=== PATIENT | male | born 1975 | race American Indian/Alaskan Native ===

== ENCOUNTER 2020-08-20 16:58 | Emergency (ER) | payer SELFPAY ==
[2020-08-20] MEDS ORDERED: SODIUM CHLORIDE 0.9% 1000 ML 1,000 ML IV ONE (17:35)
--- NOTE | 2020-08-20 17:43 | Emergency Department Report ---
ED General Adult HPI - General Chief complaint: Seizure Stated complaint: AMS Time Seen by Provider: 08/20/20 17:23 Source: patient Mode of arrival: Stretcher Limitations: No Limitations - History of Present Illness Initial comments: Patient presents to the emergency department with a chief complaint of a syncopal episode with seizure-like activity. Per EMS the patient was cutting grass when he passed out which was witnessed by sister. The sister states the patient was also shaking as if he had a seizure while lying on the ground. Patient denies a history of seizures. Upon questioning the patient he denies having a history of passing out in the past but does endorse being a daily drinker. Patient states that he drinks a couple beers a day but did not drink any alcohol today. Patient states that is unusual. Patient denies chest pain, shortness breath, or headache. -: Sudden Severity scale (0 -10): 0 Consistency: now resolved Improves with: none Worsens with: none Associated Symptoms: denies other symptoms Treatments Prior to Arrival: none - Related Data Allergies Allergy/AdvReac Type Severity Reaction Status Date / Time No Known Allergies Allergy Unverified 08/20/20 17:17 ED Review of Systems ROS: Stated complaint: AMS Other details as noted in HPI Comment: All other systems reviewed and negative Constitutional: denies: chills, fever Eyes: denies: eye pain, eye discharge, vision change ENT: denies: ear pain, throat pain Respiratory: denies: cough, shortness of breath, wheezing Cardiovascular: denies: chest pain, palpitations Endocrine: no symptoms reported Gastrointestinal: denies: abdominal pain, nausea, diarrhea Genitourinary: denies: urgency, dysuria Musculoskeletal: denies: back pain, joint swelling, arthralgia Skin: denies: rash, lesions Neurological: denies: headache, weakness, paresthesias Psychiatric: denies: anxiety, depression Hematological/Lymphatic: denies: easy bleeding, easy bruising ED Past Medical Hx - Past Medical History Previous Medical History?: No - Surgical History Past Surgical History?: No - Social History Smoking Status: Current Every Day Smoker Substance Use Type: Alcohol ED Physical Exam - General Limitations: No Limitations General appearance: alert, in no apparent distress - Head Head exam: Present: atraumatic, normocephalic - Eye Eye exam: Present: normal appearance, PERRL, EOMI - ENT ENT exam: Present: mucous membranes moist, other (Patient has dried blood to the left nasal nare) - Neck Neck exam: Present: normal inspection - Respiratory Respiratory exam: Present: normal lung sounds bilaterally. Absent: respiratory distress - Cardiovascular Cardiovascular Exam: Present: normal rhythm, tachycardia. Absent: systolic murmur, diastolic murmur, rubs, gallop - GI/Abdominal GI/Abdominal exam: Present: soft, normal bowel sounds. Absent: distended, tenderness - Rectal Rectal exam: Present: deferred - Extremities Exam Extremities exam: Present: normal inspection - Back Exam Back exam: Present: normal inspection - Neurological Exam Neurological exam: Present: alert, oriented X3, CN II-XII intact. Absent: motor sensory deficit - Psychiatric Psychiatric exam: Present: normal affect, normal mood - Skin Skin exam: Present: warm, dry, intact, normal color. Absent: rash ED Medical Decision Making - Medical Decision Making After discussing the need for a work-up due to the patient's syncopal episode he decided that he wanted to leave AGAINST MEDICAL ADVICE. I discussed in detail with the patient the dangers of this including worsening of his symptoms/illness, and . After much discussion and with me expressing my concern about him leaving the patient still decided to leave AGAINST MEDICAL ADVICE. Critical care attestation.: If time is entered above; I have spent that time in minutes in the direct care of this critically ill patient, excluding procedure time. ED Disposition Clinical Impression: Syncope and collapse Disposition: DC-07 LEFT AGAINST MED ADVICE Is pt being admited?: No Does the pt Need Aspirin: No Condition: Stable Instructions: Syncope (ED) Additional Instructions: We have discussed the dangers of you leaving AGAINST MEDICAL ADVICE which include and worsening of your illness. You have had a syncopal episode of unknown origin and your tachycardic. Tachycardia means that you have a fast heart rate. Also discussed with you that this could be secondary to having a blood clot in your lungs or stroke. With this being explained to you you have still decided to leave AGAINST MEDICAL ADVICE. Referrals: TONY MYERS MD [Staff Physician] - 3-5 Days Forms: AMA Form Time of Disposition: 17:52
[2020-08-20 18:31] VITALS: BP 126/56
== END 2020-08-20 18:29 | disposition left against medical advice (07) ==
LOC: ED 16:58
DX: R55 Syncope and collapse (principal); F17.200 Nicotine dependence, unspecified, uncomplicated
CPT/HCPCS: 99283